=== PATIENT | female | born 1980 | race Caucasian/White ===

== ENCOUNTER 2018-12-08 12:38 | Emergency (ER) | payer MEDICAID, MEDICARE ==
[~2018-12-08] VITALS: Ht 160 cm; Wt 66.4 kg
[~2018-12-08 12:38] MED LIST: GABA-533 PO; NAPR250T4 PO; RISP1 PO; VALA500T38 PO
[2018-12-08 12:45] VITALS: BP 119/79
[2018-12-08] MEDS ORDERED: LITH300T PO (12:49)
[2018-12-08] MEDS ORDERED: FLUO-191 PO (12:49)
== END 2018-12-08 14:10 | disposition left against medical advice (07) ==
LOC: EMS 12:46
DX: F41.9 Anxiety disorder, unspecified (principal); Z53.21 Procedure and treatment not carried out due to patient leaving prior to being seen by health care provider

== ENCOUNTER 2018-12-18 23:50 | Inpatient (IN) | payer MEDICAID, MEDICARE ==
[~2018-12-18] VITALS: Ht 157.5 cm; Wt 63.6 kg
[~2018-12-18 23:50] MED LIST changes: +FLUO-191 PO; -GABA-533 PO; +LITH300T PO; -NAPR250T4 PO; -RISP1 PO; -VALA500T38 PO
[2018-12-19] MEDS ORDERED: LORazepam 2 MG/ML VIAL IM ONE (01:00)
[2018-12-19] MEDS ORDERED: HALOPERIDOL LACTATE 5 MG/ML VIAL IM ONE (01:00)
[2018-12-19] MEDS ORDERED: 0.9% SODIUM CHLORIDE 10 ML SYRINGE IVP PRN (01:15)
[2018-12-19] MEDS ORDERED: ACETAMINOPHEN 325 MG TABLET PO PRN ×2 (01:15→12:00)
[2018-12-19] MEDS ORDERED: HALOPERIDOL 5 MG TABLET PO PRN (01:30)
[2018-12-19] MEDS ORDERED: ZOLPIDEM TARTRATE 10 MG TABLET PO PRN (01:30)
[2018-12-19] MEDS ORDERED: LORazepam 2 MG TABLET PO PRN (01:30)
[2018-12-19 01:53] LABS: ALANINE AMINOTRANSFERASE 32 U/L (12-78); ALBUMIN 3.9 g/dL (3.4-5.0); ALKALINE PHOSPHATASE 72 U/L (46-116); ANION GAP 10 mmol/L (8-16); ASPARTATE AMINOTRANSFERASE 24 U/L (15-37); BASOPHILS % (AUTO) 0.8 % (0.0-2.0); BILIRUBIN,TOTAL 0.2 mg/dL (0.1-1.0); CALCIUM, TOTAL 9.1 mg/dL (8.8-10.5); CARBON DIOXIDE 29 mmol/L (22-29); CHLORIDE 102 mmol/L (98-107); CREATININE 0.66 mg/dL (0.60-1.30); EOSINOPHILS % (AUTO) 3.5 % (1.0-6.0); GLOMERULAR FILTR. RATE CALC > 60 mL/min (>60); GLUCOSE,RANDOM 115 mg/dL (70-110); HEMATOCRIT 39.4 % (36-46); HEMOGLOBIN 12.9 g/dL (12.0-16.0); LYMPHOCYTES # (AUTO) 1.2 K/uL (1.0-4.8); LYMPHOCYTES % (AUTO) 25.6 % (22.0-44.0); MEAN CORPUSCULAR HEMOGLOBIN 27.3 pg (26.0-34.0); MEAN CORPUSCULAR HGB CONC 32.6 G/dL (31.0-37.0); MEAN CORPUSCULAR VOLUME 84 fL (80-100); MONOCYTES # (AUTO) 0.9 K/uL (0.1-1.0); MONOCYTES % (AUTO) 18.5 % (2.0-9.0); NEUTROPHILS # (AUTO) 2.5 K/uL (1.8-7.7); NEUTROPHILS % (AUTO) 51.6 % (40.0-70.0); PLATELET COUNT (AUTO) 247 K/uL (150-450); RED BLOOD CELL COUNT(AUTO) 4.72 MIL/uL (4.00-5.20); RED CELL DISTRIBUTION WIDTH 13.4 % (11.5-14.5); SODIUM SERUM 141 mmol/L (136-145); TOTAL PROTEIN, SERUM 7.3 g/dL (6.4-8.2); UREA NITROGEN, BLOOD 12 mg/dL (7-18)
[2018-12-19 01:59] LABS: POTASSIUM 2.6 mmol/L (3.5-5.1)
[2018-12-19] MEDS ORDERED: POTASSIUM CHLORIDE 20 MEQ ER TABLET PO ONE ×2 (02:00→08:45)
[2018-12-19 02:07] LABS: APPEARANCE,URINE CLEAR (CLEAR); BILIRUBIN,URINE NEGATIVE (NEGATIVE); GLUCOSE, URINE (UA) NEGATIVE (NEGATIVE); KETONES,URINE TRACE mg/dL (NEGATIVE); LEUKOCYTE ESTERASE ,URINE NEGATIVE (NEGATIVE); NITRATE,URINE NEGATIVE (NEGATIVE); OCCULT BLOOD,URINE NEGATIVE (NEGATIVE); PROTEIN,URINE NEGATIVE (NEGATIVE); UROBILINOGEN,URINE 0.2 mg/dL (<=1.0)
[2018-12-19 02:12] LABS: AMPHET/METH SCREEN,URINE NEGATIVE (NEGATIVE); BARBITURATE SCREEN, URINE NEGATIVE (NEGATIVE); BENZODIAZEPINES SCREEN,URINE NEGATIVE (NEGATIVE); CANNABINOID SCREEN,URINE NEGATIVE (NEGATIVE); COCAINE SCREEN,URINE NEGATIVE (NEGATIVE); METHADONE SCREEN, URINE NEGATIVE (NEGATIVE); OPIATE SCREEN,URINE NEGATIVE (NEGATIVE)
[2018-12-19 02:15] LABS: PHENCYCLIDINE SCREEN,URINE NEGATIVE (NEGATIVE)
[2018-12-19] MEDS: POTASSIUM CHL 10 MEQ/WATER 50 ML IV SCH ×4 (02:34→05:37)
[2018-12-19 02:54] LABS: HCG,QUANTITATIVE < 1 mIU/mL (0-6)
[2018-12-19 03:16] LABS: LITHIUM < 0.20 mmol/L (0.60-1.20)
[2018-12-19 08:17] VITALS: BP 125/68
[2018-12-19 08:19] VITALS: BP 133/68
[2018-12-19] MEDS ORDERED: DOCUSATE SODIUM 100 MG CAPSULE PO PRN (12:00)
[2018-12-19] MEDS ORDERED: IBUPROFEN 400 MG TABLET PO PRN (12:00)
[2018-12-19] MEDS ORDERED: LOPERAMIDE HCL 2 MG CAPSULE PO PRN (12:00)
[2018-12-19] MEDS ORDERED: ALBUTEROL SULFATE HFA 90 MCG/PUFF 8 GM INHALER IH PRN (12:00)
[2018-12-19] MEDS ORDERED: MAG HYDROX/AL HYDROX/SIMETH ES 30 ML SUSPENSION UDCUP PO PRN (12:00)
[2018-12-19] MEDS ORDERED: MAGNESIUM HYDROXIDE SUSPENSION 30 ML UDCUP PO PRN (12:00)
[2018-12-19] MEDS ORDERED: PETROLATUM,WHITE 28 GM JELLY TP PRN (12:00)
[2018-12-19] MEDS ORDERED: CloNIDine HCL 0.1 MG TABLET PO PRN (12:00)
[2018-12-19] MEDS ORDERED: GuaiFENesin/D-METHORPHAN [SUGAR-FREE] 200-20MG/10 ML SYRUP UDCUP PO PRN (12:00)
[2018-12-19] MEDS ORDERED: ONDANSETRON HCL 4 MG TABLET PO PRN (12:00)
[2018-12-19] MEDS ORDERED: NICOTINE 14 MG/24 HOUR PATCH TD PRN (12:00)
[2018-12-19 16:10] VITALS: BP 131/75
== END 2018-12-19 23:00 | DRG 885 ==
LOC: EMS 23:52 → B3A 12-19 02:30
PROVIDERS: ADMIT Psychiatry & Neurology Psychiatry; ATTEND Psychiatry & Neurology Psychiatry
DX: F25.9 Schizoaffective disorder, unspecified (principal); R45.851 Suicidal ideations; F10.10 Alcohol abuse, uncomplicated; E87.6 Hypokalemia; F31.9 Bipolar disorder, unspecified; I95.9 Hypotension, unspecified; Y90.9 Presence of alcohol in blood, level not specified
CPT/HCPCS: 84132; G0480; J1630; J2060; J3480